=== PATIENT | female | born 2000 ===

== ENCOUNTER → 2023-06-09 12:50 | Outpatient (CLI) | payer OTHER, SELFPAY ==
--- NOTE | ~2023-06-09 | US_ITS ---
EXAMINATION: US pelvic complete w TV DATE: 06/09/2023 13:23 INDICATION: Pelvic pain and cramping TECHNIQUE: Multiple transabdominal and endovaginal sonographic images of the pelvis were obtained. COMPARISON: None. FINDINGS: The uterus measures 7.0 x 2.8 x 3.3 cm. The endometrial complex measures 2 mm in thickness. The righ t ovary measures 1.6 x 1.6 x 1.4 cm. The left ovary measures 5.5 x 5.1 x 3.3 cm. Vascular flow identi fied within both ovaries on color Doppler. 5.2 x 5.0 x 3.5 cm anechoic cyst in the left ovary itself containing a 12 mm daughter cyst with single thin intervening septation. No nodular soft tissue compo nent. There is no free fluid in the pelvis. IMPRESSION: 1. 5.2 cm left ovarian cyst with internal small daughter cyst. Given size would recommend 6-12 month follow-up ultrasound. Reviewed, dictated and finalized at location A. [facility]
== END ==
PROVIDERS: PCP Physician Assistant; Visit Provider Physician Assistant
DX: R10.2 Pelvic and perineal pain (principal); N83.201 Unspecified ovarian cyst, right side
CPT/HCPCS: 76830; 76856